=== PATIENT | female | born 1950 | race Two or more races ===

== ENCOUNTER 2016-06-26 09:05 | Outpatient (CLI) | payer MEDICARE, OTHER | END 2016-06-26 23:59 | disposition home or self-care (01) | LOC: WOU 09:05 | PROVIDERS: ATTEND Podiatrist Foot & Ankle Surgery | DX: I83.218 Varicose veins of right lower extremity with both ulcer of other part of lower extremity and inflammation (principal); I96 Gangrene, not elsewhere classified; L97.811 Non-pressure chronic ulcer of other part of right lower leg limited to breakdown of skin; J45.909 Unspecified asthma, uncomplicated; Z96.652 Presence of left artificial knee joint; I83.891 Varicose veins of right lower extremity with other complications | CPT/HCPCS: 11042; A6402 ==

== ENCOUNTER 2016-07-10 14:41 | Outpatient (CLI) | payer MEDICARE, OTHER | END 2016-07-10 23:59 | disposition home or self-care (01) | LOC: WOU 14:41 | PROVIDERS: ATTEND Podiatrist Foot & Ankle Surgery | DX: I87.331 Chronic venous hypertension (idiopathic) with ulcer and inflammation of right lower extremity (principal); L97.811 Non-pressure chronic ulcer of other part of right lower leg limited to breakdown of skin; I83.891 Varicose veins of right lower extremity with other complications; Z96.652 Presence of left artificial knee joint; J45.909 Unspecified asthma, uncomplicated | CPT/HCPCS: 15271; A6402; Q4131 ×2 ==

== ENCOUNTER 2016-07-18 08:53 | Outpatient (CLI) | payer MEDICARE, OTHER | END 2016-07-18 23:59 | disposition home or self-care (01) | LOC: WOU 08:53 | PROVIDERS: ATTEND Podiatrist Foot & Ankle Surgery | DX: I83.218 Varicose veins of right lower extremity with both ulcer of other part of lower extremity and inflammation (principal); L97.811 Non-pressure chronic ulcer of other part of right lower leg limited to breakdown of skin; Z96.652 Presence of left artificial knee joint; J45.909 Unspecified asthma, uncomplicated | CPT/HCPCS: 15271; A6402 ==

== ENCOUNTER 2016-07-24 10:55 | Outpatient (CLI) | payer MEDICARE, OTHER | END 2016-07-24 23:59 | disposition home or self-care (01) | LOC: WOU 10:55 | PROVIDERS: ATTEND Podiatrist Foot & Ankle Surgery | DX: I83.218 Varicose veins of right lower extremity with both ulcer of other part of lower extremity and inflammation (principal); L97.811 Non-pressure chronic ulcer of other part of right lower leg limited to breakdown of skin; Z96.652 Presence of left artificial knee joint | CPT/HCPCS: A6197; A6402; G0463 ==

== ENCOUNTER 2016-08-07 10:18 | Outpatient (CLI) | payer MEDICARE, OTHER | END 2016-08-07 23:59 | disposition home or self-care (01) | LOC: WOU 10:18 | PROVIDERS: ATTEND Podiatrist Foot & Ankle Surgery | DX: I83.893 Varicose veins of bilateral lower extremities with other complications (principal); Z96.652 Presence of left artificial knee joint; J45.909 Unspecified asthma, uncomplicated | CPT/HCPCS: G0463 ==